=== PATIENT | male | born 1970 | race Asian ===

== ENCOUNTER 2020-11-20 08:04 | Inpatient (IN) | payer OTHER ==
[~2020-11-20 08:04] MED LIST: LACTATED RINGERS 1,000 ML IV ONE
--- NOTE | 2020-11-20 09:33 | ANESTHESIA ---
Pre-Anesthesia VS, & Labs - Diagnosis screening - Procedure colonoscopy Vital Signs: Temp Pulse Resp BP Pulse Ox 36.2 C L 73 18 130/92 H 98 11/20/20 08:20 11/20/20 08:20 11/20/20 08:20 11/20/20 08:20 11/20/20 08:20 Height: 5 ft 9 in Weight (kg): 95 kg Body Mass Index: 30.9 BMI Classification: Obese - NPO >8 hours Home Medications and Allergies No Known Home Medications 10/08/14 Allergies/Adverse Reactions: Allergies Allergy/AdvReac Type Severity Reaction Status Date / Time No Known Drug Allergies Allergy Verified 10/08/14 20:55 Anes History & Medical History - Anesthetic History Anesthesia Complications: reports: No previous complications - Medical History Cardiovascular: reports: None Pulmonary: reports: None Gastrointestinal: reports: Other Urinary: reports: None Musculoskeletal: reports: None Endocrine/Autoimmune: reports: None Blood Disorders: reports: None Skin: reports: None Smoking Status: Never smoker History of Cancer?: No - Surgical History General: reports: Appendectomy Exam General: Alert Dental: WNL Mallampati classification: I Respiratory: Lungs clear Cardiovascular: Regular rate Plan Anesthesia Type: Total IV Consent for Procedure(s) Verified and Reviewed: Yes Code Status: Attempt Resuscitation ASA classification: 1-Healthy patient Is this case an emergency?: No
[2020-11-20] MEDS ORDERED: PROPOFOL 500 MG/50 ML 500 MG/50 ML VIAL ONE (09:36)
[2020-11-20] MEDS ORDERED: GLYCOPYRROLATE 1 MG/5 ML VIAL ONE (10:15)
[2020-11-20] MEDS ORDERED: LACTATED RINGERS 1,000 ML IV ONE (10:24)
[2020-11-20] MEDS ORDERED: ACETAMINOPHEN 325 MG TABLET PO PRN (12:08)
[2020-11-20] MEDS ORDERED: ONDANSETRON 4 MG/2 ML VIAL IVP PRN (12:08)
[2020-11-20] MEDS ORDERED: SODIUM CHLORIDE FLUSH 0.9% 10 ML SYRINGE IVP PRN (12:08)
--- NOTE | 2020-11-20 12:18 | HISTORY & PHYSICAL EXAMINATION ---
Chief Complaint - Chief Complaint Chief Complaint: Came for routine screening colonoscopy today History of Present Illness - Admitted From Admitted From:: PACU - History Obtained From History obtained from: Anesthesia and Gen Surgeon and the patient - History of Present Illness HPI Comment/Other: This is a 50-year-old white male with a negative past medical history except that 6 years ago he had a ruptured appendix and needed surgery, had a postop ileus and required 6 days hospitalization. The patient takes no medications. Today the patient presented for screening colonoscopy done by Dr Beaver, not for any specific GI complaints. During the colonoscopy, as the probe was being advanced, he developed third-degree heart block with P waves present but no QRS complexes present, for over 6 seconds. The anesthesia provider (Tiny Weinstein), administered Glycopyrrolate and but not Atropine. His heart rate returned to the 60s. The colonoscopy proceeded and several minutes later, with advancing of the probe, he again had a similar episode of complete heart block with P waves present but no QRS complexes again for over 6 seconds. He again got Glycopyrrolate. The colonoscopy procedure was finished to completion and it showed no abnormalities, per verbal report to me. The general surgeon, Dr Beaver, approached this Hospitalist with the rhythm strips and the details were then obtained from the anesthesiology provider. The patient is currently in the PACU awakening from his conscious sedation. He states he has no cardiac history. He states he has never had syncope or near- syncope. There are no family members with cardiac complaints or pacemakers. He has never needed a stress test. He denies any chest pain. 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 His (over the phone), reported that ileus 6 years ago and wonders if he has sensitivity to having anesthesia. Patient is being admitted for evaluation of complete heart block into the ICU with external pacemaker patches attached. I discussed his code wishes with the patient and he wants to be a full code. History - Past Medical History Cardiovascular: reports: None Respiratory: reports: None Endocrine/Autoimmune: reports: None GI: reports: Other : reports: None HEENT: reports: None Psych: reports: None Musculoskeletal: reports: None Derm: reports: None MRSA Hx?: No - Past Surgical History General: reports: Appendectomy (In 2014, and he had a post-op ileus for 6 days.) - Family & Social History Family History: Sister: (She is middle-aged and a week or 2 ago of sudden cardiac ), Brother: Alive and Well Living arrangement: At home Living Situation: With spouse/s.o., With family (A 16-year-old son lives at home with them. There is another child who is in lives out of the house.) Social History Notes: The patient lives with his and 16-year-old child. He works full-time, he is a correctional counselor/case manager. He is a non-smoker who never smoked. He drinks beer only on and Fridays (because "that is what his allows"). There is no illicit drug use history. - Substance History Use: Uses substance without health or social issues: Alcohol - POLST Patient has POLST: No Meds/Allgy - Home Medications Home Medications: Ambulatory Orders Medication Instructions Recorded Confirmed No Known Home Medications 10/08/14 11/17/20 - Allergies Allergies/Adverse Reactions: Allergies Allergy/AdvReac Type Severity Reaction Status Date / Time No Known Drug Allergies Allergy Verified 10/08/14 20:55 Review of Systems - All Other Systems All Other Systems: reports: Reviewed and negative Exam - Vital Signs Reviewed Vital Signs: Yes Vital Signs: Vital Signs x48h Temp Pulse Resp BP Pulse Ox 11/20/20 11:28 36.5 C 90 20 134/93 H 99 11/20/20 11:17 88 16 138/100 H 99 11/20/20 11:01 91 14 138/105 H 99 11/20/20 10:51 86 18 132/100 H 97 11/20/20 10:45 90 15 129/100 H 96 11/20/20 10:41 85 20 123/93 H 97 11/20/20 10:35 86 14 121/86 H 100 11/20/20 10:30 87 21 114/83 H 98 11/20/20 10:25 89 18 97/70 98 11/20/20 10:22 36.7 C 91 20 97/75 97 11/20/20 08:20 36.2 C L 73 18 130/92 H 98 - Physical Exam General Appearance: positive: No acute distress, Alert Eyes Bilateral: positive: Normal inspection, PERRL, EOMI ENT: positive: ENT inspection nml, No signs of dehydration Neck: positive: Nml inspection, No JVD Respiratory: positive: No respiratory distress, Breath sounds nml Cardiovascular: positive: Regular rate & rhythm, No murmur Peripheral Pulses: positive: 2+ Abdomen: positive: Non-tender, Nml bowel sounds Skin: positive: Warm, Dry Extremities: positive: Non-tender, No pedal edema Neurologic/Psychiatric: positive: Oriented x3 (Non-focal) Conclusion/Plan - Problem List (1) Complete heart block Conclusion/Plan: Rhythm strips show complete heart block with P waves and no QRS conduction and this recurred twice. This is possibly related to 2 vagal events from distention of the colon with air during a colonoscopy however will evaluate for underlying cardiac conduction system disease. Direst admit from PACU into the ICU, on telemetry. Apply external pacemaker patches in standard position so that if he needs pacemaker support rapidly, this is ready to be plugged in. Obtain electrolytes to rule out any cause that could be reversible if abnormal. Plan to obtain troponins x2 or further trops if abnormal. Obtain Echocardiogram to evaluate cardiac structures. Obtain chest x-ray to determine if there are any cardiopulmonary abnormalities currently Avoid heart rate slowing medications. Monitor VS q2h. Check his fasting lipid panel regarding his coronary risk factors. After all the above, a discussion with a staff consultant is planned to determine if he needs transfer for EP testing or permanent pacemaker insertion or if outpatient follow-up with Cardiology would be adequate. (2) Family history sudden in sister Conclusion/Plan: The patient describes that his sister suddenly 2 weeks ago. She went to bed in her camper and never woke up. Some type of preliminary results were that she had Covid pneumonia. The final autopsy result is not yet available. If it is determined that she of sudden cardiac , this is an important factor in determining how to proceed for this patient, regarding likely transfer to Cardiology for possible EP study and/or permanent pacemaker insertion. - Lab Results Fish Bones: 11/20/20 12:29 11/20/20 12:29 - Diagnostic Imaging Results Diagnostic Imaging Results: positive: Final report reviewed - EKG Results EKG Interpreted Independently: Yes EKG Comparison: Old EKG unavailable EKG Findings: NSR, WNL.
--- NOTE | 2020-11-20 12:21 | ANESTHESIA POST OP EVALUATION ---
Anesthesia Post Eval - Post Anesthesia Eval Vitals: Last Vital Signs Temp 36.5 C 11/20/20 11:28 Pulse 90 11/20/20 11:28 Resp 20 11/20/20 11:28 BP 134/93 H 11/20/20 11:28 Pulse Ox 99 11/20/20 11:28 CV Function Including HR & BP: Stable Pain Control: Satisfactory Nausea & Vomiting: Negative Mental Status: Baseline Respiratory Status: Airway Patent Hydration Status: Satisfactory Anesthesia Complications: None
--- NOTE | 2020-11-20 12:24 | PHARMACY PROGRESS NOTE ---
- Best Possible Medication History Admit Date and Time: 11/20/20 1141 Processed by: Nursing (MEDICATION RECONCILIATION COMPLETED BY NURSING.) Medication History completed: Yes Patient Interview: Completed As the person ultimately responsible for medication therapy, providers are able to order a medication from an existing home medication list in [facility] via the "Reconcile Routine" prior to Confirmation of that medication by sales support representative. Such practice is discouraged except when the physician, in their clinical judgment, deems that a medical need exists for a medication without regard to previous use.
[2020-11-20 12:37] LABS: BASOPHILS % (AUTO) 0.2 %; EOSINOPHILS # (AUTO) 0.2 10^3/uL (0.0-0.7); EOSINOPHILS % (AUTO) 3.2 %; HCT - HEMATOCRIT 45.7 % (42.0-52.0); HGB - HEMOGLOBIN 15.1 g/dL (14.0-18.0); LYMPHOCYTES # (AUTO) 1.2 10^3/uL (1.5-3.5); LYMPHOCYTES % (AUTO) 21.3 %; MEAN CORPUSCULAR HEMOGLOBIN 29.8 pg (27.0-31.0); MEAN CORPUSCULAR VOLUME 90.1 fL (80.0-94.0); MEAN PLATELET VOLUME 8.8 fL (7.4-11.4); MONOCYTES # (AUTO) 0.4 10^3/uL (0.0-1.0); MONOCYTES % (AUTO) 6.9 %; NEUTROPHILS # (AUTO) 3.9 10^3/uL (1.5-6.6); NEUTROPHILS % (AUTO) 68.2 %; PLT - PLATELET COUNT 301 10^3/uL (130-450); RED BLOOD COUNT 5.07 10^6/uL (4.70-6.10); WHITE BLOOD COUNT 5.7 x10^3/uL (4.8-10.8)
--- NOTE | 2020-11-20 12:39 | XRAY Report ---
PROCEDURE: Chest 1 View X-Ray INDICATIONS: Complete heart block TECHNIQUE: One view of the chest was acquired. COMPARISON: None FINDINGS: Surgical changes and devices: None. Lungs and pleura: No pleural effusions or pneumothorax. Lungs are clear. Mediastinum: Mediastinal contours appear normal. Heart size is mildly prominent. Bones and chest wall: No suspicious bony lesions. Overlying soft tissues appear unremarkable. IMPRESSION: No acute pulmonary process. Reviewed by: Stacy Calle MD on 11/20/2020 12:38 PM PDT Approved by: Stacy Calle MD on 11/20/2020 12:38 PM PDT Station ID: [id number]
[2020-11-20 12:50] LABS: ALBUMIN 4.3 g/dL (3.2-5.5); ALBUMIN/GLOBULIN RATIO 1.4 (1.0-2.2); BILIRUBIN,TOTAL 1.6 mg/dL (0.2-1.0); CALCIUM 9.6 mg/dL (8.5-10.3); CREATININE 0.8 mg/dL (0.6-1.2); POTASSIUM 4.5 mmol/L (3.5-5.0); TOTAL PROTEIN 7.3 g/dL (6.7-8.2)
[2020-11-20] MEDS ORDERED: SODIUM CHLORIDE 0.9% 1,000 ML IV SCH (13:00)
[2020-11-20 15:23] LABS: BILIRUBIN,URINE NEGATIVE (NEGATIVE); GLUCOSE, URINE (UA) NEGATIVE (NEGATIVE); KETONES,URINE (UA) NEGATIVE (NEGATIVE); LEUKOCYTE ESTERASE, URINE NEGATIVE (NEGATIVE); NITRITE,URINE NEGATIVE (NEGATIVE); OCCULT BLOOD,URINE NEGATIVE (NEGATIVE); PH,URINE 6.5 PH (5.0-7.5); PROTEIN,URINE NEGATIVE (NEGATIVE); UROBILINOGEN,URINE 0.2 (NORMAL) E.U./dL (NORMAL)
[2020-11-20 15:27] LABS: CLARITY,URINE CLEAR (CLEAR)
[2020-11-20] MEDS: SODIUM CHLORIDE FLUSH 0.9% 10 ML SYRINGE IVP SCH ×2 (18:24→20:28)
[2020-11-20 18:44] LABS: B. PARAPERTUSSIS- RESP PCR PAN NOT DETECTED; B. PERTUSSIS- RESP PCR PANEL NOT DETECTED; C. PNEUMONIAE- RESP PCR PANEL NOT DETECTED; CORONAVIRUS 229E-RESP PCR NOT DETECTED; CORONAVIRUS HKU1-RESP PCR NOT DETECTED; CORONAVIRUS NL63-RESP PCR NOT DETECTED; CORONAVIRUS OC43-RESP PCR NOT DETECTED; HUMAN METAPNEUMOVIRUS NOT DETECTED; INFLUENZA A- RESP PCR PANEL NOT DETECTED; INFLUENZA B - RESP PCR PANEL NOT DETECTED; M. PNEUMONIAE- RESP PCR PANEL NOT DETECTED; PARAINFLUENZA VIRUS 1 NOT DETECTED; PARAINFLUENZA VIRUS 2 NOT DETECTED; PARAINFLUENZA VIRUS 3 NOT DETECTED; PARAINFLUENZA VIRUS 4 NOT DETECTED; RHINOVIRUS/ENTEROVIRUS NOT DETECTED; RSV- RESP PCR PANEL NOT DETECTED; SARS-CoV-2 -RESP PCR PANEL NOT DETECTED
[2020-11-20] MEDS: FAMOTIDINE 20 MG TABLET PO SCH (20:28)
[2020-11-21 05:35] LABS: CHOL/HDL RATIO 5.9 (<5.0); CHOLESTEROL 248 mg/dL; HDL CHOLESTEROL 42 mg/dL; LDL CHOLESTEROL,CALCULATED 181 mg/dL; LDL/HDL RATIO 4.3 (<3.6); TRIGLYCERIDES 123 mg/dL; VLDL CHOLESTEROL 25 mg/dL
[2020-11-21] MEDS: SODIUM CHLORIDE FLUSH 0.9% 10 ML SYRINGE IVP SCH (10:08)
[2020-11-21] MEDS: FAMOTIDINE 20 MG TABLET PO SCH (10:13)
--- NOTE | 2020-11-21 11:26 | Discharge Plan ---
Discharge Plan Problem Reviewed?: Yes Disposition: Home, Self Care Condition: Good Diet: Regular Activity Restrictions: no driving until seen Shower Restrictions: No Driving Restrictions: Yes (no driving until seen by Cardiology) Health Concerns: You presented to our hospital as a simple screening colonoscopy. However during the procedure you had 2 episodes of complete heart block. We think that it was a simple body reflex response to your bowel getting inflated with air. And that in turn stimulated your vagus nerve. However, this can be a very serious cond ition. We made sure you are not having a heart attack. EKG and measurement of heart damage did not show heart attack. We did an ultrasound of your heart called an echocardiogram and that was normal as well other than a slight enlargement of your right upper heart chamber. Plan of Treatment: 1. We had made arrangements for you to be transferred to [place] to be seen by cardiology today and then discharged to home tomorrow. However you declined that transfer and wanted to be seen by [facility]. Right now they do not have any beds available and you will be going home to make arrangements to be seen by [facility] cardiology. 2. I have already called your primary care provider office and requested that they follow-up on your final report of the echocardiogram, order an event monitor which is a little box that measures your rhythm for the next 30 days, and make a referral to [facility] cardiology. 3. You cannot drive or run a boat until you were seen by cardiology. 4. If you have another episode of heart block which resulted in you passing out, you must go to the emergency room immediately. Care Goals: To be able to go fishing by December 08. With regards to that you would like to have your heart issue laid to rest by then. Assessment: is at the bedside. Patient relies on her for decision-making process. She and he understand the care plan. No Smoking: If you smoke, Please STOP! Call for help. Follow-up with: DARCIE LOZA PA [Primary Care Provider] -
[2020-11-21 12:13] VITALS: BP 130/97
--- NOTE | 2020-11-21 12:46 | DISCHARGE SUMMARY ---
Discharge Summary Admit Date: 11/20/20 Discharge Date: 11/21/20 Discharging Provider: Rayne Benavidez MD Primary Care Provider: Cara Saenz Code Status: Attempt Resuscitation Condition at Discharge: Good Discharge Disposition: 01 Home, Self Care - DIAGNOSES Discharge Diagnoses with Status of Each Condition: 1. Third-degree heart block - HPI History of Present Illness: This is a 50-year-old white male with a negative past medical history except that 6 years ago he had a ruptured appendix and needed surgery, had a postop ileus and required 6 days hospitalization. The patient takes no medications. Today the patient presented for screening colonoscopy done by Dr Beaver, not for any specific GI complaints. During the colonoscopy, as the probe was being advanced, he developed third-degree heart block with P waves present but no QRS complexes present, for over 6 seconds. The anesthesia provider (Tiny Weinstein), administered Glycopyrrolate and but not Atropine. His heart rate returned to the 60s. The colonoscopy proceeded and several minutes later, with advancing of the probe, he again had a similar episode of complete heart block with P waves present but no QRS complexes again for over 6 seconds. He again got Glycopyrrolate. The colonoscopy procedure was finished to completion and it derik wed no abnormalities, per verbal report to me. The general surgeon, Dr Beaver, approached this Hospitalist with the rhythm strips and the details were then obtained from the anesthesiology provider. The patient is currently in the PACU awakening from his conscious sedation. He states he has no cardiac history. He states he has never had syncope or near- syncope. There are no family members with cardiac complaints or pacemakers. He has never needed a stress test. He denies any chest pain. 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 His (over the phone), reported that ileus 6 years ago and wonders if he has sensitivity to having anesthesia. Patient is being admitted for evaluation of complete heart block into the ICU with external pacemaker patches attached. I discussed his code wishes with the patient and he wants to be a full code. - Past Medical History He has no past illnesses - Past Surgical History General: reports: Appendectomy (In 2014, and he had a post-op ileus for 6 days.) - CONSULTS | PROCEDURES Procedures: Preliminary echocardiogram report shows no valvular heart disease, and only mild right atrial dilation. Ejection fraction is normal. Chest x-ray without acute cardiopulmonary process Troponins were undetectable at less than 2.3 twice Triglyceride 123, cholesterol 248, LDL 181, VLDL 25, HDL 42 - HOSPITAL COURSE Hospital Course: Patient was placed in ICU, and had pacer patches on him. He did not require any more use of atropine. He had no further episodes of bradycardia or heart block. He remained in sinus rhythm for the rest of his stay. Work-up for reversible causes of third-degree heart block were done and negative as above. I spoke to Dr. Irvin who is the no doc handle maker on-call for [facility]. He felt that the patient would warrant an evaluation with cardiology, and accepted the patient in transfer. However, when I spoke to the patient himself, he did not want to be evaluated at [facility]. He specifically wanted to be seen at [facility]. He also did not want to wait for transfer and wanted to be discharged even if it meant AMA because his boat is in [place] "in pieces" and he had to be there TODAY. Emphasis his. He recognized he had a potentially lethal arrhythmia due to syncope or his heart just not beating. But he still wanted to go. After review on my part: In view of the fact that this episode occurred with insufflation of the bowel, and he has not had any previous episodes, and has not had repeat episodes, I felt it was safe to send the patient home. I have warned him that he cannot drive a car nor get on his boat. Crab season starts December 08. I have given him a copy of his troponins, preliminary report of echocardiogram, and the telemetry strips documenting the third-degree heart block. I have also given him a copy of his regular EKG which is normal sinus rhythm and nonspecific changes of the inferior leads. He is to use these copies to show a Cardilogist when he gets his appointment. I reviewed the Anesthesia report from his previous admission. At that point in time he had no arrhythmias. His concern was that somehow anesthesia was causing him to have his third-degree heart block. I explained to him that the previous anesthesia most likely just cause sedation with difficulty waking up but no arrhythmia. This one was most likely due to the insufflation of the bowel. He and his will seek cardiology consultation with [facility] cardiology group. I have left a message with the nuclear medical technologist of Cara Saenz from [facility]. She was in the room with the patient and could not come to the phone and as such I left a message with her MA. He will need an event monitor and a referral to [facility]. On discharge his temperature is 36.8. He is pulse is 85. The lowest he was overnight was 59-61, sinus. Blood pressure 130/97. Respirations 18. 97% on room air. His is at the bedside. She states that he "does not listen". I did explain to her that I offered transfer to [place] and he refused. His concern is getting to his fishing boat by December 08. I told her that he cannot fish or drive a car until he is cleared by cardiology. By his refusal to go to [place], there will be a delay in evaluation. She is exasperated. He still w ants to go to [place] for the boat and the eval. He is 5 foot 9 inches tall and weighs 96 kg. Alert, oriented to person place and time. Lucid speech. Neck is supple without JVD. Lungs are clear to auscultation and percussion. PMI normally placed with a regular rate and rhythm. The abdomen is soft, nontender, no organomegaly, no masses. Extremities are warm without clubbing cyanosis or edema. Neurologically, there are no deficits, walking in the room to the bathroom without assist. Greater than 30 minutes spent coordinating discharge. - ALLERGIES Allergies/Adverse Reactions: Allergies Allergy/AdvReac Type Severity Reaction Status Date / Time No Known Drug Allergies Allergy Verified 10/08/14 20:55 - MEDICATIONS Home Medications: Ambulatory Orders Medication Instructions Recorded Confirmed No Known Home Medications 10/08/14 11/17/20 - LABS Result Diagrams: 11/20/20 12:29 11/20/20 12:29
== END 2020-11-21 12:15 | disposition home or self-care (01) | DRG 310 ==
LOC: SDS 08:04 → ICU 11:41
PROVIDERS: ADMIT Internal Medicine; ATTEND Specialist
PROC: 0DJD8ZZ Inspection of Lower Intestinal Tract, Via Natural or Artificial Opening Endoscopic (ICD-10-PCS; principal; 2020-11-20 09:00)
DX: I44.2 Atrioventricular block, complete (principal); Z12.11 Encounter for screening for malignant neoplasm of colon; Z53.29 Procedure and treatment not carried out because of patient's decision for other reasons; Z20.822 Contact with and (suspected) exposure to COVID-19
CPT/HCPCS: 0202U; 36415; 71045; 80053; 80061; 81003; 83735; 84100; 84484; 85025; 85379; 87150; 93005; 93306; J7120; 81001; 83721; 87086